=== PATIENT | male | born 1995 | race Caucasian/White ===

== ENCOUNTER 2022-03-17 01:05 | Emergency (ER) | payer OTHER ==
[2022-03-17] MEDS ORDERED: SODIUM CHLORIDE 0.9% 500 ML INFUS.BAG IV ONE (01:08)
[2022-03-17] MEDS ORDERED: KETOROLAC TROMETHAMINE 30 MG/1 ML VIAL IVPUSH ONE (01:08)
[2022-03-17] MEDS ORDERED: KETOROLAC TROMETHAMINE 30 MG/1 ML VIAL IM ONE (01:09)
[2022-03-17 01:14] VITALS: BP 114/97; PULSE 58; RESP 17; TEMP 98.8; BMI 18.8
[2022-03-17] MEDS ORDERED: KETOROLAC TROMETHAMINE 30 MG/1 ML VIAL ONE (01:16)
[2022-03-17 01:49] LABS: PH,URINE 5.5 (5.0-8.0); URINE APPEARANCE CLEAR; URINE BILIRUBIN NEGATIVE (NEGATIVE); URINE COLOR YELLOW; URINE GLUCOSE (UA) NEGATIVE (NEGATIVE); URINE KETONE NEGATIVE (NEGATIVE); URINE LEUK ESTERASE NEGATIVE (NEGATIVE); URINE NITRITE NEGATIVE (NEGATIVE); URINE PROTEIN NEGATIVE (NEGATIVE); URINE UROBILINOGEN 0.2 mg/dL (0.2-1.0)
[2022-03-17 01:56] LABS: EOS % 1.3 % (0-4.5); HEMATOCRIT 46.1 % (35.4-49); HEMOGLOBIN 15.9 GM/dL (11.7-16.9); LYMPH % 29.9 % (8-40); MCH 32.7 pg (25.7-33.7); MCHC 34.4 g/dl (32.0-35.9); MEAN CELL VOLUME 95.2 fl (80-96); MONO % 12.1 % (3.8-10.2); NEUT % 55.7 % (42.8-82.8); PLATELET COUNT 281 10^3/uL (134-434); RBC 4.85 M/mm3 (4.00-5.60); RDW 12.8 % (11.9-15.9); WHITE BLOOD COUNT 7.6 K/mm3 (4.0-10.0)
[2022-03-17 02:00] LABS: ALBUMIN 4.4 g/dl (3.4-5.0); CALCIUM 9.2 mg/dL (8.5-10.1)
[2022-03-17 02:05] LABS: BILIRUBIN,TOTAL 0.3 mg/dL (0.2-1); TOT PROT 7.9 g/dl (6.4-8.2)
== END 2022-03-17 02:51 | disposition home or self-care (01) ==
LOC: FER 01:05
PROC: 3E0333Z Introduction of Anti-inflammatory into Peripheral Vein, Percutaneous Approach (ICD-10-PCS; principal; 2022-03-17)
PROC: 3E0233Z Introduction of Anti-inflammatory into Muscle, Percutaneous Approach (ICD-10-PCS; 2022-03-17)
DX: R30.0 Dysuria (principal)
CPT/HCPCS: 36415; 74176-TC; 80053; 81003; 85025; 87086; 99284-25

== ENCOUNTER 2023-01-07 22:22 | Emergency (ER) | payer OTHER ==
[2023-01-07 22:33] VITALS: BP 124/84; PULSE 106; RESP 16; TEMP 98.6; BMI 19.0
== END 2023-01-07 23:07 | disposition home or self-care (01) ==
LOC: FER 22:22
DX: S62.667A Nondisplaced fracture of distal phalanx of left little finger, initial encounter for closed fracture (principal); Y04.0XXA Assault by unarmed brawl or fight, initial encounter
CPT/HCPCS: 73140-TC-LT-FY; 99283-25

== ENCOUNTER 2023-04-07 14:48 | Emergency (ER) | payer OTHER ==
[2023-04-07 15:10] VITALS: BP 144/91; PULSE 107; RESP 18; TEMP 98; BMI 18.8
== END 2023-04-07 15:51 | disposition home or self-care (01) ==
LOC: FER 14:48
DX: S61.217A Laceration without foreign body of left little finger without damage to nail, initial encounter (principal); W25.XXXA Contact with sharp glass, initial encounter
CPT/HCPCS: 99282-25